=== PATIENT | male | born 1950 | race Asian ===

== ENCOUNTER 2017-08-23 12:34 | Emergency (ER) | payer MEDICARE, OTHER ==
[~2017-08-23] VITALS: Ht 167.6 cm; Wt 81.0 kg
[2017-08-23 12:43] VITALS: BP 123/63
[2017-08-23] MEDS ORDERED: LISI-661 PO (12:51)
[2017-08-23] MEDS ORDERED: CARV3 PO (12:51)
[2017-08-23] MEDS ORDERED: ATOR10TA84 PO (12:51)
[2017-08-23] MEDS ORDERED: ASPI-556 PO (12:51)
== END 2017-08-23 13:57 | disposition home or self-care (01) ==
LOC: EMS 12:36
DX: R10.9 Unspecified abdominal pain (principal); I10 Essential (primary) hypertension; E78.00 Pure hypercholesterolemia, unspecified; Z87.891 Personal history of nicotine dependence
CPT/HCPCS: 74022; 99283